=== PATIENT | male | born 1935 | race Caucasian/White ===

== ENCOUNTER 2017-04-13 12:32 | Emergency (ER) | payer MEDICARE, OTHER ==
[~2017-04-13] VITALS: Ht 175.3 cm; Wt 65.9 kg
[~2017-04-13 12:32] MED LIST: FOLI1 PO; LACT30L PO; TAMS0.4C32 PO; TRAZ-144 PO
[2017-04-13] MEDS ORDERED: ALBUTEROL SULFATE 2.5 MG/0.5 ML NEB SOLUTION NEB ONE (14:30)
[2017-04-13] MEDS ORDERED: 0.9% SODIUM CHLORIDE 5 ML NEB SOLUTION NEB ONE (14:43)
[2017-04-13] MEDS ORDERED: AZITHROMYCIN 250 MG TABLET PO ONE (14:45)
[2017-04-13 15:25] VITALS: BP 120/63
== END 2017-04-13 16:42 | disposition home or self-care (01) ==
LOC: EMS 12:33
DX: J18.0 Bronchopneumonia, unspecified organism (principal); E11.9 Type 2 diabetes mellitus without complications; J34.89 Other specified disorders of nose and nasal sinuses
CPT/HCPCS: 94640; 99283

== ENCOUNTER 2018-06-15 08:56 | Emergency (ER) | payer MEDICARE, OTHER ==
[~2018-06-15] VITALS: Ht 167.6 cm; Wt 70.0 kg
[~2018-06-15 08:56] MED LIST changes: -TRAZ-144 PO; +TRAZ-219 PO
[2018-06-15] MEDS ORDERED: RIVA10 PO (09:11)
[2018-06-15] MEDS ORDERED: DSS100 PO (09:11)
[2018-06-15] MEDS ORDERED: LISI-660 PO (09:11)
[2018-06-15] MEDS ORDERED: CHOL50004 PO (09:12)
[2018-06-15] MEDS ORDERED: AMOX1TAB14 PO (09:12)
[2018-06-15] MEDS ORDERED: ACET-66 PO (09:12)
[2018-06-15 10:55] LABS: BASOPHILS % (AUTO) 0.6 % (0.0-2.0); EOSINOPHILS % (AUTO) 4.6 % (1.0-6.0); HEMATOCRIT 35.9 % (41-53); HEMOGLOBIN 11.8 g/dL (13.5-17.5); LYMPHOCYTES # (AUTO) 0.7 K/uL (1.0-4.8); LYMPHOCYTES % (AUTO) 14.4 % (22.0-44.0); MEAN CORPUSCULAR HEMOGLOBIN 28.8 pg (26.0-34.0); MEAN CORPUSCULAR VOLUME 88 fL (80-100); MONOCYTES # (AUTO) 0.4 K/uL (0.1-1.0); MONOCYTES % (AUTO) 7.8 % (2.0-9.0); NEUTROPHILS # (AUTO) 3.5 K/uL (1.8-7.7); NEUTROPHILS % (AUTO) 72.6 % (40.0-70.0); PLATELET COUNT (AUTO) 294 K/uL (150-450); RED CELL DISTRIBUTION WIDTH 14.4 % (11.5-14.5)
[2018-06-15 11:10] LABS: APPEARANCE,URINE CLEAR (CLEAR); BILIRUBIN,URINE NEGATIVE (NEGATIVE); GLUCOSE, URINE (UA) NEGATIVE (NEGATIVE); KETONES,URINE NEGATIVE (NEGATIVE); LEUKOCYTE ESTERASE ,URINE NEGATIVE (NEGATIVE); NITRATE,URINE NEGATIVE (NEGATIVE); OCCULT BLOOD,URINE NEGATIVE (NEGATIVE); PROTEIN,URINE NEGATIVE (NEGATIVE); UROBILINOGEN,URINE 0.2 mg/dL (<=1.0)
[2018-06-15 11:24] LABS: ANION GAP 10 mmol/L (8-16); CALCIUM, TOTAL 9.3 mg/dL (8.8-10.5); CARBON DIOXIDE 27 mmol/L (22-29); CHLORIDE 103 mmol/L (98-107); CREATININE 0.98 mg/dL (0.60-1.30); GLUCOSE,RANDOM 82 mg/dL (70-110); POTASSIUM 4.1 mmol/L (3.5-5.1); SODIUM SERUM 140 mmol/L (136-145); UREA NITROGEN, BLOOD 19 mg/dL (7-18)
[2018-06-15 11:27] LABS: ALANINE AMINOTRANSFERASE 45 U/L (12-78); ALKALINE PHOSPHATASE 147 U/L (46-116); ASPARTATE AMINOTRANSFERASE 30 U/L (15-37); BILIRUBIN,TOTAL 0.2 mg/dL (0.1-1.0); GLOMERULAR FILTR. RATE CALC > 60 mL/min (>60)
[2018-06-15 12:07] LABS: BACTERIA,URINE Rare /HPF (None Seen); RBC,URINE None Seen /HPF (0-2); SQUAMOUS EPITHELIAL CELL,UR Rare /LPF (None Seen); WBC,URINE 0-2 /HPF (0-5)
[2018-06-15 13:01] VITALS: BP 136/85
== END 2018-06-15 13:37 | disposition home or self-care (01) ==
LOC: EMS 08:57
DX: Z04.3 Encounter for examination and observation following other accident (principal); I10 Essential (primary) hypertension; Z79.899 Other long term (current) drug therapy; W01.0XXA Fall on same level from slipping, tripping and stumbling without subsequent striking against object, initial encounter; Y93.89 Activity, other specified; Y92.89 Other specified places as the place of occurrence of the external cause; Y99.8 Other external cause status
CPT/HCPCS: 93005

== ENCOUNTER 2018-06-19 02:21 | Emergency (ER) | payer MEDICARE, OTHER ==
[~2018-06-19] VITALS: Ht 185.4 cm; Wt 72.7 kg
[~2018-06-19 02:21] MED LIST changes: +ACET-66 PO; +AMOX1TAB14 PO; +CHOL50004 PO; +DSS100 PO; +LISI-660 PO; +RIVA10 PO
[2018-06-19] MEDS ORDERED: GABA-531 PO (02:34)
[2018-06-19] MEDS ORDERED: GABA-529 PO (02:34)
[2018-06-19 04:21] LABS: BASOPHILS % (AUTO) 0.9 % (0.0-2.0); EOSINOPHILS % (AUTO) 3.7 % (1.0-6.0); HEMATOCRIT 33.3 % (41-53); HEMOGLOBIN 11.1 g/dL (13.5-17.5); LYMPHOCYTES # (AUTO) 0.7 K/uL (1.0-4.8); LYMPHOCYTES % (AUTO) 13.1 % (22.0-44.0); MEAN CORPUSCULAR HEMOGLOBIN 29.2 pg (26.0-34.0); MEAN CORPUSCULAR HGB CONC 33.4 G/dL (31.0-37.0); MEAN CORPUSCULAR VOLUME 87 fL (80-100); MONOCYTES # (AUTO) 0.5 K/uL (0.1-1.0); MONOCYTES % (AUTO) 8.5 % (2.0-9.0); NEUTROPHILS # (AUTO) 4.2 K/uL (1.8-7.7); NEUTROPHILS % (AUTO) 73.8 % (40.0-70.0); PLATELET COUNT (AUTO) 298 K/uL (150-450); RED BLOOD CELL COUNT(AUTO) 3.82 MIL/uL (4.50-5.90); RED CELL DISTRIBUTION WIDTH 14.3 % (11.5-14.5)
[2018-06-19 04:30] LABS: PROTHROMBIN TIME 10.3 SEC (9.4-11.6)
[2018-06-19 04:31] LABS: ANION GAP 9 mmol/L (8-16); CALCIUM, TOTAL 9.2 mg/dL (8.8-10.5); CARBON DIOXIDE 24 mmol/L (22-29); CHLORIDE 102 mmol/L (98-107); CREATININE 0.99 mg/dL (0.60-1.30); GLOMERULAR FILTR. RATE CALC > 60 mL/min (>60); GLUCOSE,RANDOM 81 mg/dL (70-110); POTASSIUM 4.1 mmol/L (3.5-5.1); SODIUM SERUM 135 mmol/L (136-145); UREA NITROGEN, BLOOD 22 mg/dL (7-18)
[2018-06-19 04:37] LABS: ALANINE AMINOTRANSFERASE 30 U/L (12-78); ALBUMIN 2.9 g/dL (3.4-5.0); ALKALINE PHOSPHATASE 132 U/L (46-116); ASPARTATE AMINOTRANSFERASE 19 U/L (15-37); BILIRUBIN,TOTAL 0.3 mg/dL (0.1-1.0); TOTAL PROTEIN, SERUM 7.8 g/dL (6.4-8.2)
[2018-06-19 04:55] LABS: APPEARANCE,URINE CLEAR (CLEAR); BILIRUBIN,URINE NEGATIVE (NEGATIVE); GLUCOSE, URINE (UA) NEGATIVE (NEGATIVE); KETONES,URINE NEGATIVE (NEGATIVE); LEUKOCYTE ESTERASE ,URINE NEGATIVE (NEGATIVE); NITRATE,URINE NEGATIVE (NEGATIVE); OCCULT BLOOD,URINE NEGATIVE (NEGATIVE); PH,URINE 5.5 (5.0-8.0); PROTEIN,URINE NEGATIVE (NEGATIVE); UROBILINOGEN,URINE 0.2 mg/dL (<=1.0)
[2018-06-19 09:20] VITALS: BP 135/64
== END 2018-06-19 09:58 | disposition home or self-care (01) ==
LOC: EMS 02:21
DX: R53.1 Weakness (principal); W01.0XXA Fall on same level from slipping, tripping and stumbling without subsequent striking against object, initial encounter; Y93.89 Activity, other specified; Y92.89 Other specified places as the place of occurrence of the external cause; Y99.8 Other external cause status; Z79.899 Other long term (current) drug therapy
CPT/HCPCS: 93005

== ENCOUNTER 2018-08-03 10:22 | Emergency (ER) | payer MEDICARE, OTHER ==
[~2018-08-03] VITALS: Ht 182.9 cm; Wt 75.0 kg
[~2018-08-03 10:22] MED LIST changes: -FOLI1 PO; +GABA-529 PO; +GABA-531 PO; -LACT30L PO; -RIVA10 PO
[2018-08-03] MEDS ORDERED: RIVA10 PO (10:41)
[2018-08-03] MEDS ORDERED: POLY17PO29 PO (10:41)
[2018-08-03] MEDS ORDERED: VIT D3 PO (10:41)
[2018-08-03] MEDS ORDERED: OMEP20 PO (10:41)
[2018-08-03] MEDS ORDERED: GABA-529 PO (10:41)
[2018-08-03 11:37] LABS: BASOPHILS % (AUTO) 0.5 % (0.0-2.0); EOSINOPHILS % (AUTO) 4.4 % (1.0-6.0); HEMATOCRIT 40.8 % (41-53); HEMOGLOBIN 13.3 g/dL (13.5-17.5); LYMPHOCYTES # (AUTO) 0.6 K/uL (1.0-4.8); LYMPHOCYTES % (AUTO) 14.5 % (22.0-44.0); MEAN CORPUSCULAR HEMOGLOBIN 28.5 pg (26.0-34.0); MEAN CORPUSCULAR HGB CONC 32.6 G/dL (31.0-37.0); MEAN CORPUSCULAR VOLUME 87 fL (80-100); MONOCYTES # (AUTO) 0.3 K/uL (0.1-1.0); MONOCYTES % (AUTO) 6.1 % (2.0-9.0); NEUTROPHILS # (AUTO) 3.2 K/uL (1.8-7.7); NEUTROPHILS % (AUTO) 74.5 % (40.0-70.0); PLATELET COUNT (AUTO) 192 K/uL (150-450); RED BLOOD CELL COUNT(AUTO) 4.68 MIL/uL (4.50-5.90); RED CELL DISTRIBUTION WIDTH 14.9 % (11.5-14.5)
[2018-08-03 11:56] LABS: ALANINE AMINOTRANSFERASE 29 U/L (12-78); ALBUMIN 3.5 g/dL (3.4-5.0); ALKALINE PHOSPHATASE 145 U/L (46-116); ASPARTATE AMINOTRANSFERASE 25 U/L (15-37); BILIRUBIN,TOTAL 0.3 mg/dL (0.1-1.0); CALCIUM, TOTAL 9.3 mg/dL (8.8-10.5); CARBON DIOXIDE 27 mmol/L (22-29); CREATININE 1.08 mg/dL (0.60-1.30); GLUCOSE,RANDOM 63 mg/dL (70-110); TOTAL PROTEIN, SERUM 9.1 g/dL (6.4-8.2); UREA NITROGEN, BLOOD 17 mg/dL (7-18)
[2018-08-03 12:01] LABS: ANION GAP 10 mmol/L (8-16); CHLORIDE 101 mmol/L (98-107); GLOMERULAR FILTR. RATE CALC > 60 mL/min (>60); POTASSIUM 3.9 mmol/L (3.5-5.1); SODIUM SERUM 138 mmol/L (136-145)
[2018-08-03 12:50] VITALS: BP 151/80
== END 2018-08-03 13:30 | disposition home or self-care (01) ==
LOC: EMS 10:27
DX: R19.7 Diarrhea, unspecified (principal); I10 Essential (primary) hypertension; Z79.899 Other long term (current) drug therapy

== ENCOUNTER 2018-12-13 05:35 | Emergency (ER) | payer MEDICARE, OTHER ==
[~2018-12-13] VITALS: Ht 185.4 cm; Wt 73.8 kg
[~2018-12-13 05:35] MED LIST changes: -GABA-531 PO; +OMEP20 PO; +POLY17PO29 PO; +RIVA10 PO; -TRAZ-219 PO; +TRAZ-252 PO; +VIT D3 PO
[2018-12-13 08:27] VITALS: BP 114/74
== END 2018-12-13 08:39 | disposition home or self-care (01) ==
LOC: EMS 05:38
DX: R19.7 Diarrhea, unspecified (principal); I10 Essential (primary) hypertension; Z79.899 Other long term (current) drug therapy

== ENCOUNTER 2020-06-02 07:36 | Emergency (ER) | payer MEDICARE, OTHER ==
[~2020-06-02] VITALS: Ht 188 cm; Wt 81.8 kg
[~2020-06-02 07:36] MED LIST changes: -AMOX1TAB14 PO; +BACTDSB PO; +CHOL125C2 PO; -CHOL50004 PO; +GABA-1216 PO; -GABA-529 PO; -LISI-660 PO; +LISI-892 PO; +TAMS-13 PO; -TAMS0.4C32 PO
[2020-06-02 09:47] LABS: APPEARANCE,URINE CLOUDY (CLEAR); BILIRUBIN,URINE NEGATIVE (NEGATIVE); GLUCOSE, URINE (UA) NEGATIVE (NEGATIVE); KETONES,URINE NEGATIVE (NEGATIVE); LEUKOCYTE ESTERASE ,URINE LARGE (NEGATIVE); NITRATE,URINE POSITIVE (NEGATIVE); OCCULT BLOOD,URINE MODERATE (NEGATIVE); PH,URINE 8.5 (5.0-8.0); PROTEIN,URINE POS 1+ (NEGATIVE); UROBILINOGEN,URINE 0.2 mg/dL (<=1.0)
[2020-06-02] MEDS ORDERED: SULFAMETHOX/TRIMETH DS 800-160 MG/TABLET PO ONE (10:00)
[2020-06-02 10:05] LABS: BACTERIA,URINE Many /HPF (None Seen); WBC,URINE 26-50 /HPF (0-5)
[2020-06-02 11:11] VITALS: BP 143/74
== END 2020-06-02 12:03 | disposition home or self-care (01) ==
LOC: EMS 07:36
DX: T83.021A Displacement of indwelling urethral catheter, initial encounter (principal); I10 Essential (primary) hypertension; N39.0 Urinary tract infection, site not specified; Y84.6 Urinary catheterization as the cause of abnormal reaction of the patient, or of later complication, without mention of misadventure at the time of the procedure; Y73.8 Miscellaneous gastroenterology and urology devices associated with adverse incidents, not elsewhere classified
CPT/HCPCS: 51702; 87086; 99284; 81001-TC; 87077-TC; 87186-TC; Z7502; Z7610

== ENCOUNTER 2020-09-14 04:12 | Emergency (ER) | payer MEDICARE, OTHER ==
[~2020-09-14] VITALS: Ht 182.9 cm; Wt 84.1 kg
[~2020-09-14 04:12] MED LIST changes: -BACTDSB PO; -CHOL125C2 PO; +CHOL500013 PO; -POLY17PO29 PO; +POLY17PO52 PO
[2020-09-14 05:30] VITALS: BP 136/73
== END 2020-09-14 06:20 | disposition home or self-care (01) ==
LOC: EMS 04:12
DX: T83.511A Infection and inflammatory reaction due to indwelling urethral catheter, initial encounter (principal); Y84.6 Urinary catheterization as the cause of abnormal reaction of the patient, or of later complication, without mention of misadventure at the time of the procedure; Y73.8 Miscellaneous gastroenterology and urology devices associated with adverse incidents, not elsewhere classified
CPT/HCPCS: 99283; Z7502

== ENCOUNTER 2020-12-18 18:20 | Emergency (ER) | payer MEDICARE, OTHER ==
[~2020-12-18] VITALS: Ht 177.8 cm; Wt 72.7 kg
[~2020-12-18 18:20] MED LIST changes: -ACET-66 PO; -DSS100 PO; -GABA-1216 PO; -OMEP20 PO; -POLY17PO52 PO; -RIVA10 PO; +RIVA10TA PO; -TRAZ-252 PO; -VIT D3 PO
[2020-12-18 19:48] LABS: APPEARANCE,URINE CLOUDY (CLEAR); BILIRUBIN,URINE NEGATIVE (NEGATIVE); GLUCOSE, URINE (UA) NEGATIVE (NEGATIVE); KETONES,URINE NEGATIVE (NEGATIVE); LEUKOCYTE ESTERASE ,URINE LARGE (NEGATIVE); NITRATE,URINE POSITIVE (NEGATIVE); OCCULT BLOOD,URINE LARGE (NEGATIVE); PROTEIN,URINE TRACE (NEGATIVE); UROBILINOGEN,URINE 0.2 mg/dL (<=1.0)
[2020-12-18 20:06] LABS: BACTERIA,URINE Many /HPF (None Seen); WBC,URINE >100 /HPF (0-5)
[2020-12-18 20:09] LABS: SQUAMOUS EPITHELIAL CELL,UR None Seen /LPF (None Seen)
[2020-12-19 08:57] VITALS: BP 117/51
== END 2020-12-18 22:15 | disposition home or self-care (01) ==
LOC: EMS 18:24
DX: T83.098A Other mechanical complication of other urinary catheter, initial encounter (principal); N39.0 Urinary tract infection, site not specified; I10 Essential (primary) hypertension; E03.9 Hypothyroidism, unspecified; Y84.6 Urinary catheterization as the cause of abnormal reaction of the patient, or of later complication, without mention of misadventure at the time of the procedure; Y92.89 Other specified places as the place of occurrence of the external cause
CPT/HCPCS: 51702; 81001; 87077; 87086; 87186; 99285; Z7502

== ENCOUNTER 2021-01-09 04:25 | Emergency (ER) | payer MEDICARE, OTHER ==
[~2021-01-09] VITALS: Ht 182.9 cm; Wt 72.0 kg
[2021-01-09 05:08] VITALS: BP 138/60
== END 2021-01-09 10:14 | disposition home or self-care (01) ==
LOC: EMS 04:28
DX: T83.028A Displacement of other urinary catheter, initial encounter (principal); I10 Essential (primary) hypertension; Z79.899 Other long term (current) drug therapy; Y84.6 Urinary catheterization as the cause of abnormal reaction of the patient, or of later complication, without mention of misadventure at the time of the procedure
CPT/HCPCS: 51702; 99284; Z7502

== ENCOUNTER 2021-01-13 20:59 | Emergency (ER) | payer MEDICARE, OTHER ==
[~2021-01-13] VITALS: Ht 185.4 cm; Wt 74.1 kg
[2021-01-13] MEDS ORDERED: CEPHALEXIN MONOHYDRATE 500 MG CAPSULE PO ONE (22:00)
[2021-01-13 22:34] VITALS: BP 137/75
== END 2021-01-13 22:45 | disposition home or self-care (01) ==
LOC: EMS 21:07
DX: T83.091A Other mechanical complication of indwelling urethral catheter, initial encounter (principal); Y84.6 Urinary catheterization as the cause of abnormal reaction of the patient, or of later complication, without mention of misadventure at the time of the procedure; Y73.8 Miscellaneous gastroenterology and urology devices associated with adverse incidents, not elsewhere classified
CPT/HCPCS: 74018; 99283

== ENCOUNTER 2021-02-08 10:10 | Emergency (ER) | payer MEDICARE, OTHER ==
[~2021-02-08] VITALS: Ht 185.4 cm; Wt 63.6 kg
[2021-02-08 12:51] LABS: ANION GAP 10 mmol/L (8-16); CALCIUM, TOTAL 9.4 mg/dL (8.8-10.5); CARBON DIOXIDE 26 mmol/L (22-29); CHLORIDE 105 mmol/L (98-107); GLOMERULAR FILTR. RATE CALC > 60 mL/min (>60); GLUCOSE,RANDOM 95 mg/dL (70-110); POTASSIUM 3.9 mmol/L (3.5-5.1); SODIUM SERUM 141 mmol/L (136-145); UREA NITROGEN, BLOOD 19 mg/dL (7-18)
[2021-02-08 13:12] LABS: BASOPHILS % (AUTO) 0.5 % (0.0-2.0); EOSINOPHILS % (AUTO) 4.5 % (1.0-6.0); HEMATOCRIT 44.3 % (41-53); HEMOGLOBIN 14.9 g/dL (13.5-17.5); LYMPHOCYTES # (AUTO) 0.9 K/uL (1.0-4.8); LYMPHOCYTES % (AUTO) 12.4 % (22.0-44.0); MEAN CORPUSCULAR HEMOGLOBIN 29.9 pg (26.0-34.0); MEAN CORPUSCULAR HGB CONC 33.6 G/dL (31.0-37.0); MEAN CORPUSCULAR VOLUME 89 fL (80-100); MONOCYTES # (AUTO) 0.8 K/uL (0.1-1.0); MONOCYTES % (AUTO) 10.6 % (2.0-9.0); NEUTROPHILS # (AUTO) 5.1 K/uL (1.8-7.7); PLATELET COUNT (AUTO) 179 K/uL (150-450); RED BLOOD CELL COUNT(AUTO) 4.97 MIL/uL (4.50-5.90); RED CELL DISTRIBUTION WIDTH 15.5 % (11.5-14.5)
[2021-02-08 13:52] LABS: APPEARANCE,URINE CLEAR (CLEAR); BILIRUBIN,URINE NEGATIVE (NEGATIVE); GLUCOSE, URINE (UA) NEGATIVE (NEGATIVE); KETONES,URINE NEGATIVE (NEGATIVE); LEUKOCYTE ESTERASE ,URINE SMALL (NEGATIVE); NITRATE,URINE NEGATIVE (NEGATIVE); OCCULT BLOOD,URINE NEGATIVE (NEGATIVE); PROTEIN,URINE NEGATIVE (NEGATIVE)
[2021-02-08 14:02] LABS: BACTERIA,URINE None Seen /HPF (None Seen); RBC,URINE None Seen /HPF (0-2); SQUAMOUS EPITHELIAL CELL,UR Few /LPF (None Seen)
[2021-02-08 14:55] VITALS: BP 130/72
== END 2021-02-08 15:56 | disposition home or self-care (01) ==
LOC: EMS 10:29
DX: R53.1 Weakness (principal); I10 Essential (primary) hypertension; E03.9 Hypothyroidism, unspecified; Z79.899 Other long term (current) drug therapy
CPT/HCPCS: 80048; 81001; 85025; 99283

== ENCOUNTER 2021-02-15 14:05 | Emergency (ER) | payer MEDICARE, OTHER ==
[~2021-02-15] VITALS: Ht 182.9 cm; Wt 74.5 kg
[2021-02-15 15:30] LABS: APPEARANCE,URINE CLEAR (CLEAR); BILIRUBIN,URINE NEGATIVE (NEGATIVE); GLUCOSE, URINE (UA) NEGATIVE (NEGATIVE); KETONES,URINE NEGATIVE (NEGATIVE); LEUKOCYTE ESTERASE ,URINE MODERATE (NEGATIVE); NITRATE,URINE NEGATIVE (NEGATIVE); OCCULT BLOOD,URINE LARGE (NEGATIVE); PROTEIN,URINE TRACE (NEGATIVE)
[2021-02-15 16:19] LABS: BACTERIA,URINE Few /HPF (None Seen)
[2021-02-15] MEDS ORDERED: CEPHALEXIN MONOHYDRATE 500 MG CAPSULE PO ONE (16:30)
[2021-02-15 18:49] VITALS: BP 131/74
== END 2021-02-15 19:12 | disposition home or self-care (01) ==
LOC: EMS 14:08
DX: T83.018A Breakdown (mechanical) of other urinary catheter, initial encounter (principal); N39.0 Urinary tract infection, site not specified; I10 Essential (primary) hypertension; Z79.899 Other long term (current) drug therapy; Y84.6 Urinary catheterization as the cause of abnormal reaction of the patient, or of later complication, without mention of misadventure at the time of the procedure
CPT/HCPCS: 51702; 81001; 87077; 87086; 87186; 99283; 99284

== ENCOUNTER 2021-08-13 10:48 | Emergency (ER) | payer MEDICARE ==
[~2021-08-13] VITALS: Ht 193 cm; Wt 80.9 kg
[~2021-08-13 10:48] MED LIST changes: +CHOL100018 PO; +FOLI0.4T6 PO; +LISI-894 PO; +TAMS-1 PO; +VITA100T5 PO
[2021-08-13] MEDS ORDERED: SODIUM CHLORIDE 0.9% 1,000 ML IV ONE (12:15)
[2021-08-13 12:46] LABS: EOSINOPHILS % (AUTO) 2.3 % (1.0-6.0); HEMATOCRIT 39.5 % (41-53); HEMOGLOBIN 13.5 g/dL (13.5-17.5); LYMPHOCYTES # (AUTO) 0.9 K/uL (1.0-4.8); LYMPHOCYTES % (AUTO) 16.1 % (22.0-44.0); MEAN CORPUSCULAR HEMOGLOBIN 29.8 pg (26.0-34.0); MEAN CORPUSCULAR HGB CONC 34.2 G/dL (31.0-37.0); MEAN CORPUSCULAR VOLUME 87 fL (80-100); MONOCYTES # (AUTO) 0.7 K/uL (0.1-1.0); MONOCYTES % (AUTO) 12.3 % (2.0-9.0); NEUTROPHILS % (AUTO) 68.3 % (40.0-70.0); PLATELET COUNT (AUTO) 182 K/uL (150-450); RED BLOOD CELL COUNT(AUTO) 4.53 MIL/uL (4.50-5.90)
[2021-08-13 12:48] LABS: ANION GAP 8 mmol/L (8-16); CALCIUM, TOTAL 9.3 mg/dL (8.8-10.5); CARBON DIOXIDE 30 mmol/L (22-29); CHLORIDE 104 mmol/L (98-107); CREATININE 1.02 mg/dL (0.60-1.30); GLUCOSE,RANDOM 78 mg/dL (70-110); POTASSIUM 4.8 mmol/L (3.5-5.1); SODIUM SERUM 142 mmol/L (136-145); UREA NITROGEN, BLOOD 26 mg/dL (7-18)
[2021-08-13 12:51] LABS: GLOMERULAR FILTR. RATE CALC > 60 mL/min (>60)
[2021-08-13 12:54] LABS: ALANINE AMINOTRANSFERASE 24 U/L (12-78); ALBUMIN 3.5 g/dL (3.4-5.0); ALKALINE PHOSPHATASE 146 U/L (46-116); ASPARTATE AMINOTRANSFERASE 20 U/L (15-37); BILIRUBIN,TOTAL 0.5 mg/dL (0.1-1.0); LIPASE 138 U/L (73-393); TOTAL PROTEIN, SERUM 7.7 g/dL (6.4-8.2)
[2021-08-13 12:58] VITALS: BP 152/73
[2021-08-13 13:16] LABS: APPEARANCE,URINE CLEAR (CLEAR); BILIRUBIN,URINE NEGATIVE (NEGATIVE); GLUCOSE, URINE (UA) NEGATIVE (NEGATIVE); KETONES,URINE NEGATIVE (NEGATIVE); LEUKOCYTE ESTERASE ,URINE MODERATE (NEGATIVE); NITRATE,URINE POSITIVE (NEGATIVE); OCCULT BLOOD,URINE NEGATIVE (NEGATIVE); PH,URINE 6.5 (5.0-8.0); PROTEIN,URINE NEGATIVE (NEGATIVE); SPECIFIC GRAVITIY, URINE 1.008 (1.003-1.030); UROBILINOGEN,URINE <=1.0 mg/dL (<=1.0)
[2021-08-13 13:29] LABS: BACTERIA,URINE Few /HPF (None Seen); RBC,URINE 0-2 /HPF (0-2); SQUAMOUS EPITHELIAL CELL,UR Few /LPF (None Seen); WBC,URINE 0-2 /HPF (0-5)
[2021-08-13] MEDS ORDERED: CefTRIAXone 1 GM/DEXTROSE 50 ML IV ONE (13:30)
[2021-08-13] MEDS ORDERED: CEPH-556 PO (14:04)
== END 2021-08-13 16:59 | disposition home or self-care (01) ==
LOC: EDBD → EMS 10:48 → MERGE 10:48 → EMS 16:59
DX: N39.0 Urinary tract infection, site not specified (principal); I10 Essential (primary) hypertension; Z79.899 Other long term (current) drug therapy
CPT/HCPCS: 36415; 80053; 81001; 83690; 85025; 93005; 96361; 96365; 99284; J0696; J7030